=== PATIENT | female | born 1985 | race Caucasian/White ===

== ENCOUNTER 2021-04-02 13:32 | Emergency (ER) | payer OTHER ==
[2021-04-02] MEDS ORDERED: diphenhydrAMINE 50 MG/ML VIAL ONE (14:14)
[2021-04-02] MEDS ORDERED: Metoclopramide HCl 10 MG/2 ML VIAL ONE (14:14)
[2021-04-02 14:47] LABS: #Monocytes 0.3 10x3/uL (0.0-1.1); %Basophils 0.6 % (0.0-2.0); %Eosinophils 0.6 % (0.0-6.0); %Lymphocytes 32.1 % (18.0-47.0); %Monocytes 5.3 % (0.0-10.0); Hemoglobin 14.4 g/dL (12.0-15.5); Mean Corpuscular Hemoglobin 26.3 pg (27.0-33.0); Mean Corpuscular Volume 79.7 fl (81.6-98.3); Mean Platelet Volume 9.9 fl (7.4-10.4); Platelet Count 190 10x3/uL (150-450); RBC Distribution Width 13.3 % (11.5-14.5); Red Blood Cell (RBC) Count 5.47 10x6/uL (3.90-5.03); White Blood Cell (WBC) Count 4.9 10x3/uL (3.5-10.5)
[2021-04-02 14:51] LABS: BHCG - Serum Negative (NEGATIVE); Pregs Control Background? CLEAR/WHITE (CLR/WHITE); Pregs Control Bar Appear? YES (CONTROL BAR)
[2021-04-02 14:57] LABS: ALT (SGPT) 48 U/L (8-55); AST (SGOT) 47 U/L (5-34); Albumin 3.8 g/dL (3.5-5.0); Alkaline Phosphatase 132 U/L (40-110); Anion Gap 16 mmol/L (10-20); BUN (Urea Nitrogen) 11 mg/dL (7.0-18.7); Bilirubin, Total 0.5 mg/dL (0.2-1.2); Calc. Creatinine Clearance 0 mL/min (70-130); Calcium 8.8 mg/dL (7.8-10.44); Carbon Dioxide 23 mmol/L (22-29); Chloride 98 mmol/L (98-107); Globulin 3.5 g/dL (2.4-3.5); Glucose 357 mg/dL (70-105); Protein, Total 7.3 g/dL (6.0-8.3); Sodium 133 mmol/L (136-145)
[2021-04-02] MEDS ORDERED: Amlodipine 5 MG TAB ONE (15:40)
[2021-04-02] MEDS ORDERED: Metoprolol Tartrate 25 MG TAB ONE (15:40)
[2021-04-02] MEDS ORDERED: Ramipril 5 MG CAP PO SCH (16:00)
== END 2021-04-02 15:40 | disposition home or self-care (01) ==
LOC: CSHERS 13:32
DX: I10 Essential (primary) hypertension (principal); R51.9 Headache, unspecified; E11.65 Type 2 diabetes mellitus with hyperglycemia; E78.6 Lipoprotein deficiency; Z79.4 Long term (current) use of insulin; Z79.899 Other long term (current) drug therapy
CPT/HCPCS: 36416; 80053; 84703; 85025; 93005; 96365; 96375; J1200; J2765